=== PATIENT | female | born 1955 | race Two or more races ===

== ENCOUNTER 2017-01-26 11:58 | Emergency (ER) | payer MEDICAID ==
[~2017-01-26] VITALS: Ht 160 cm; Wt 104.3 kg
[2017-01-26 12:05] VITALS: BP 118/64
[2017-01-26] MEDS ORDERED: AMOX/CLAVULANATE 875 MG TABLET PO ONE (12:30)
[2017-01-26] MEDS ORDERED: SULFAMETH/TRIMETH 800/160 MG 1 UDTAB TABLET PO ONE ×2 (12:30→12:32)
[2017-01-26] MEDS ORDERED: ONDANSETRON 4 MG TAB.RAPDIS SL ONE (12:30)
[2017-01-26] MEDS ORDERED: HYDROCODONE/APAP 5/325MG 1 EACH TABLET PO ONE (12:30)
[2017-01-26] MEDS ORDERED: AMOX/CLAVULANATE 875 MG TABLET ONE (12:31)
[2017-01-26] MEDS ORDERED: ONDANSETRON 4 MG TAB.RAPDIS ONE (12:32)
[2017-01-26] MEDS ORDERED: HYDROCODONE/APAP 5/325MG 1 EACH TABLET ONE (12:32)
== END 2017-01-26 13:01 | disposition home or self-care (01) ==
LOC: ER 12:01
DX: N61.0 Mastitis without abscess (principal); E11.9 Type 2 diabetes mellitus without complications; E78.00 Pure hypercholesterolemia, unspecified; F32.9 Major depressive disorder, single episode, unspecified; I10 Essential (primary) hypertension; J45.909 Unspecified asthma, uncomplicated
CPT/HCPCS: A4606; Q0162; Z7610

== ENCOUNTER 2019-02-11 16:49 | Emergency (ER) | payer MEDICAID ==
--- NOTE | 2019-02-11 17:00 | NUR ---
patient BIB son, c/o lower back pain, on room air, breathing evenly and unlabored, kept comfortable, will continue to monitor accordingly.
[2019-02-11] MEDS ORDERED: HYDROCODONE/APAP 5/325MG 1 EACH TABLET ONE (18:00)
[2019-02-11] MEDS ORDERED: HYDROCODONE/APAP 5/325MG 1 EACH TABLET PO ONE (18:00)
[2019-02-11 18:11] VITALS: BP 143/70
--- NOTE | 2019-02-11 18:13 | NUR ---
Patient discharged to home in stable condition. Written and verbal after care instructions given. Patient verbalizes understanding of instruction.
== END 2019-02-11 18:12 | disposition home or self-care (01) ==
LOC: ER 16:49
DX: M54.42 Lumbago with sciatica, left side (principal); I10 Essential (primary) hypertension; J45.909 Unspecified asthma, uncomplicated; E11.9 Type 2 diabetes mellitus without complications; F32.9 Major depressive disorder, single episode, unspecified; E78.00 Pure hypercholesterolemia, unspecified; Z98.890 Other specified postprocedural states; Z88.6 Allergy status to analgesic agent